=== PATIENT | male | born 1955 | race Caucasian/White ===

== ENCOUNTER → 2019-07-22 12:29 | Outpatient (CLI) | payer BC, MEDICARE, SELFPAY ==
--- NOTE | 2019-07-22 | DI.RAD.S_ITS ---
PROCEDURE: XR LUMBAR SPINE MIN 4V INDICATIONS: XR LUMBAR SPINE TECHNIQUE: 4 views of the lumbar spine acquired. COMPARISON: CR, SPINE LUMB MIN 4VW, 08/26/2016, 14:36. FINDINGS: Bones: 5 nonrib-bearing vertebrae are present. Grade 1 anterolisthesis of L4 on L5 is present. There is an appearance of a low lumbar straightening. Multilevel moderate disc space narrowing is present. Severe foraminal narrowing is present at L5-S1. No vertebral body compression fractures. No suspicious bony lesions. Soft tissues: Overlying bowel gas pattern is normal. No suspicious soft tissue calcifications. Flexion/extension: There is decreased range of motion, with flexion and extension. No dynamic instability. IMPRESSION: Decreased range of motion with degenerative changes most prominent at L5-S1. Dictated by: Cyndie Ortiz M.D. on 07/22/2019 at 16:19 Approved by: Cyndie Ortiz M.D. on 07/22/2019 at 16:21
--- NOTE | 2019-07-22 | DI.US.S_ITS ---
PROCEDURE: US ABD AORTA ANEURYSM SCREEN INDICATIONS: SCREENING TECHNIQUE: Real time scanning was performed of the aorta and iliac arteries, with image documentation. COMPARISON: None. FINDINGS: Aorta: Proximal aortic is not well-visualized. Mid-aorta measures 1.7 cm. Distal aortic diameter is 1.6 cm. Iliac arteries: Right common iliac artery measures 1.0 cm. Left common iliac artery measures 1.2 cm. IMPRESSION: Proximal aorta is not well-visualized; otherwise no abdominal aortic or common iliac artery aneurysm. Dictated by: Mark Weber [facility] Interpreted: Pepe Bates MD on 07/22/2019 at 13:22 Approved by: Pepe Bates M.D. on 07/22/2019 at 16:48
== END ==
PROVIDERS: PCP Student in an Organized Health Care Education/Training Program; Visit Provider Student in an Organized Health Care Education/Training Program
DX: Z13.6 Encounter for screening for cardiovascular disorders (principal); M47.817 Spondylosis without myelopathy or radiculopathy, lumbosacral region; M47.816 Spondylosis without myelopathy or radiculopathy, lumbar region; Z87.891 Personal history of nicotine dependence
CPT/HCPCS: 72110; 76706

== ENCOUNTER 2020-03-16 09:35 | Emergency (ER) | payer BC, MEDICARE, SELFPAY ==
[2020-03-16 10:09] VITALS: BP 189/88; PULSE 78; RESP 19; TEMP 36.7; O2SAT 94; BMI 30.1
--- NOTE | 2020-03-16 10:31 | DI.US.S_ITS ---
PROCEDURE: US ARTERIAL DUPLEX LE LT INDICATIONS: PAIN, DISCOLORATION TECHNIQUE: Color and pulse Doppler interrogation was performed of the left lower extremity arterial system, with image documentation. COMPARISON: None. FINDINGS: Common femoral artery: 131 cm/sec, with triphasic flow. Deep femoral artery: 146 cm/sec, with biphasic flow. Proximal superficial femoral artery: 165 cm/sec, with triphasic flow. Mid superficial femoral artery: 176 cm/sec, with triphasic flow. Distal superficial femoral artery: 106 cm/sec, with triphasic flow. Popliteal artery: 106 cm/sec, with triphasic flow. Posterior tibial artery: 86 cm/sec, with biphasic flow. Anterior tibial artery/dorsalis pedis: 49/28 cm/sec, with biphasic flow. Tucker-scale imaging description: No significant plaque. IMPRESSION: No hemodynamically significant stenosis, vascular occlusion or aneurysmal dilation. Dictated by: Cyndie Ortiz M.D. on 03/16/2020 at 11:47 Approved by: Cyndie Ortiz M.D. on 03/16/2020 at 11:49
--- NOTE | 2020-03-16 10:31 | DI.US.S_ITS ---
PROCEDURE: US PERIPH VENOUS LOW EXTREM LT INDICATIONS: PAIN TECHNIQUE: Real-time imaging, as well as color and pulse Doppler interrogation, were performed of the lower extremity deep veins from the inguinal ligament to the popliteal fossa. COMPARISON: [facility], , US ARTERIAL DUPLEX LE LT, 03/16/2020, 11:19. FINDINGS: The common femoral, femoral and popliteal veins are normally compressible, and free of intraluminal thrombus. Color and pulse Doppler demonstrate normal phasic intraluminal flow. There is normal augmentation response to distal compression maneuver. IMPRESSION: No deep venous thrombosis. Dictated by: Cyndie Ortiz M.D. on 03/16/2020 at 11:44 Approved by: Cyndie Ortiz M.D. on 03/16/2020 at 11:47
[2020-03-16 10:47] LABS: Add Manual Diff / Slide Review NO; Basophils Absolute Auto 0 /uL (0-100); Basophils Percent Auto 0.7 % (0-2); Eosinophils Absolute Auto 100 /uL (0-450); Eosinophils Percent Auto 1.1 % (2-4); Hematocrit 39.1 % (41-53); Hemoglobin 13.8 g/dL (13.5-17.5); Lymphocytes Absolute Auto 600 /uL (1100-4500); Lymphocytes Percent Auto 10.4 % (25-40); Mean Corpuscular HGB Conc 35.2 % (30-36); Mean Corpuscular Hemoglobin 33.6 PG (26-34); Mean Corpuscular Volume 95.3 fL (80-100); Monocytes Absolute Auto 400 /uL (0-900); Monocytes Percent Auto 6.1 % (3-14); Neutrophils Absolute Auto 4800 /uL (1500-7000); Neutrophils Percent Auto 81.7 % (50-75); Platelet Count 194 X10^3/uL (150-400); Red Cell Distribution Width 12.8 % (11.6-14.8); White Blood Cell Count 5.8 X10^3/uL (4.5-11.0)
[2020-03-16 10:53] LABS: Prothrombin Time 11.8 SECONDS (10.1-12.7)
[2020-03-16 10:56] LABS: PTT Partial Thromboplastin Tim 33 SECONDS (26.4-36.2)
--- NOTE | 2020-03-16 10:57 | ED_ITS ---
HPI - Extremity Problem <Marcy Bernabe PA-C - Last Filed: 03/16/20 12:39> General Chief complaint: Extremity Problem,Nontraumatic Stated complaint: pain in left leg below knee Time Seen by Provider: 03/16/20 10:56 Source: patient Mode of arrival: Family Vehicle Limitations: no limitations History of Present Illness HPI Narrative: This is a 64-year-old gentleman current half a pack-a-day smoker, with a history of chronic venous insufficiency who presents to the emergency department complaining of left lower leg pain on the inside of his knee just below his knee. He says that the pain started approximately 2 days ago in the morning was very sharp and very intense it did not last for a long time and he felt it on and off again for the next day or 2, then this morning he felt that again but it was less sharp and more intense and achy and slightly higher up his leg. So he was concerned because he has a family history of stroke, and he felt like maybe something was ?moving in his leg and was concerned for possible blood clot. He also notes that he feels the area is warm on the affected side, but he does not believe it is swollen. He has not had any recent change to his physical activity, he has not been in bed or stationary, he was treated with radiation approximately 1 year ago for prostate cancer. He denies shortness of breath, chest pain, abdominal pain, headache, fever, nausea, vomiting, diarrhea, chills or any other symptoms. MD Complaint: extremity pain Onset (ago): day(s) (2) Location: left and lower extremity Quality: aching and sharp Radiation: proximal (Has ?moved? to higher place on his leg) Relieving factors: nothing Exacerbating factors: nothing Associated symptoms: denies other symptoms Context: history of peripheral vascular disease Related Data Allergies Allergy/AdvReac Type Severity Reaction Status Date / Time From OXYCONTIN Allergy Severe Swelling Uncoded 03/16/20 10:12 in Lower Legs due to time release agent Review of Systems <Marcy Bernabe PA-C - Last Filed: 03/16/20 12:39> Review of Systems Narrative: GENERAL: Denies chills, fatigue, malaise, fever, sweats. HEENT: Denies sinus pain, ear pain, sore throat, difficulty swallowing, dizziness. RESPIRATORY: Denies dyspnea, cough, wheezing, hemoptysis, sputum. CARDIOVASCULAR: Denies chest pain, palpitations, orthopnea, edema, GASTROINTESTINAL: Denies nausea, vomiting, abdominal pain, diarrhea, constipation, melena. : Denies dysuria, frequency, incontinence, hematuria, urinary retention. MUSCULOSKELETAL: denies weakness, joint pain, or bony pain SKIN: Positive for slight heat on the inside of his left leg just below the knee. Positive for discoloration of both lower extremities due to chronic venous insufficiency. Denies rash, skin lesions, or other NEUROLOGIC: Denies weakness, headache, numbness, change in speech, confusion, seizures, incoordination. PSYCHIATRIC: No concerning psychosocial issues. 12 point review of systems is negative except for those stated above Patient History <Marcy Bernabe PA-C - Last Filed: 03/16/20 12:39> Social History Smoking Status: Current every day smoker Smoking Status: Current every day smoker tobacco type: cigarettes alcohol intake frequency: a few times a week Substance Use Type: does not use Exam <Marcy Bernabe PA-C - Last Filed: 03/16/20 12:39> Narrative Exam Narrative: GENERAL: 64 year old patient appears stated age. Well-nourished, well-developed patient, in mild distress. HEAD: Atraumatic. Normocephalic. EYES: Pupils equal round and reactive. Extraocular motions intact. No scleral icterus. No injection or drainage. ENT: Nose without bleeding, purulent drainage. Throat without erythema, tonsillar hypertrophy or exudate. Airway patent. NECK: Trachea midline. Non tender CARDIOVASCULAR: Regular rate and rhythm without murmurs, gallops, or rubs. RESPIRATORY: Clear to auscultation. Breath sounds equal bilaterally. No wheezes, rales, or rhonchi. GASTROINTESTINAL: Abdomen soft, non-tender, nondistended. EXTREMITIES: There is increased slight heat of the left upper calf medially compared to the right calf, there is no tenderness or erythema noted, there is brownish discoloration of bilateral shins and calves consistent with chronic venous insufficiency changes, worse on the left than the right. Calf diameter is equal in size. No edema or joint tenderness. Distal pulses area equal bilaterally BACK: Nontender without deformity or crepitance. No flank tenderness. NEURO: AOx3. SKIN: No other rash or erythema of visible areas Initial Vital Signs Initial Vital Signs: Vital Signs Temperature 98.0 F 03/16/20 10:09 Pulse Rate 78 03/16/20 10:09 Respiratory Rate 19 03/16/20 10:09 Blood Pressure 189/88 H 03/16/20 10:09 Pulse Oximetry 94 03/16/20 10:09 <Jarocho Greer MD - Last Filed: 03/17/20 07:28> Initial Vital Signs Initial Vital Signs: Vital Signs Temperature 98.0 F 03/16/20 10:09 Pulse Rate 78 03/16/20 10:09 Respiratory Rate 19 03/16/20 10:09 Blood Pressure 189/88 H 03/16/20 10:09 Pulse Oximetry 94 03/16/20 10:09 Scores <Marcy Bernabe PA-C - Last Filed: 03/16/20 12:39> GCS [place] coma scale eye opening: Spontaneous [place] coma scale verbal response: Orientated [place] coma scale motor response: Obey commands [place] coma scale total score: 15 Wells' Criteria for DVT Active Cancer (Treatment within 6 months): No Bedridden recently >3 days or major surgery within 4 weeks: No Calf Swelling >3cm compared to other leg: No Collateral (nonvericose) superficial veins present: Yes Entire leg swollen: No Localized tenderness along the deep vein system: No Pitting edema, confined to symtomatic leg: No Paralysis, paresis, or recent plaster immobilization of ext: No Previously documented DVT: No Alternative dx to DVT as likely or more likely: No Wells' criteria for DVT: 1 Course <Marcy Bernabe PA-C - Last Filed: 03/16/20 12:39> Orders Ordered: ED Orders 03/16/20 10:31 US arterial duplex LE LT Stat US periph venous low extrem lt Stat 03/16/20 10:42 Complete Blood Count AUTO DIFF Stat Comprehensive Metabolic Panel Stat D Dimer Stat PT [Prothrombin Time INR] Stat Partial Thromboplastin Time Stat Vital Signs Vital signs: Vital Signs - 8 hr 03/16/20 10:09 03/16/20 11:42 03/16/20 11:44 Temperature 98.0 F Pulse Rate 78 72 70 Respiratory Rate 19 Blood Pressure 189/88 H 211/82 H Pulse Oximetry 94 97 96 03/16/20 11:45 03/16/20 12:06 Temperature Pulse Rate 74 Respiratory Rate 14 18 Blood Pressure 178/88 H Pulse Oximetry 96 <Jarocho Greer MD - Last Filed: 03/17/20 07:28> Orders Ordered: ED Orders 03/16/20 10:31 US arterial duplex LE LT Stat US periph venous low extrem lt Stat 03/16/20 10:42 Complete Blood Count AUTO DIFF Stat Comprehensive Metabolic Panel Stat D Dimer Stat PT [Prothrombin Time INR] Stat Partial Thromboplastin Time Stat Vital Signs Vital signs: Vital Signs - 8 hr 03/16/20 10:09 03/16/20 11:42 03/16/20 11:44 Temperature 98.0 F Pulse Rate 78 72 70 Respiratory Rate 19 Blood Pressure 189/88 H 211/82 H Pulse Oximetry 94 97 96 03/16/20 11:45 03/16/20 12:06 Temperature Pulse Rate 74 Respiratory Rate 14 18 Blood Pressure 178/88 H Pulse Oximetry 96 MDM - Extremity (Nontraumatic) <Marcy Bernabe PA-C - Last Filed: 03/16/20 12:39> Lab Data Result diagrams: 03/16/20 10:42 03/16/20 10:42 Labs: Lab Results 03/16/20 03/16/20 03/16/20 Range/Units 10:42 10:42 10:42 WBC 5.8 (4.5-11.0) X10^3/uL RBC 4.10 L (4.5-5.9) X10^6/uL Hgb 13.8 (13.5-17.5) g/dL Hct 39.1 L (41-53) % MCV 95.3 (80-100) fL MCH 33.6 (26-34) PG MCHC 35.2 (30-36) % RDW 12.8 (11.6-14.8) % Plt Count 194 (150-400) X10^3/uL Neut % (Auto) 81.7 H (50-75) % Lymph % (Auto) 10.4 L (25-40) % [place] % (Auto) 6.1 (3-14) % Eos % (Auto) 1.1 L (2-4) % Baso % (Auto) 0.7 (0-2) % Neut # (Auto) 4800 (6007-2499) /uL Lymph # (Auto) 600 L (9494-7852) /uL [place] # (Auto) 400 (0-900) /uL Eos # (Auto) 100 (0-450) /uL Baso # (Auto) 0 (0-100) /uL PT 11.8 (10.1-12.7) SECONDS INR 1.0 (0.9-1.3) APTT 33 (26.4-36.2) SECONDS D-Dimer 338 H (<230) ng/mL Sodium 134 L (137-145) mmol/L Potassium 4.2 (3.4-5.1) mmol/L Chloride 98 (98-107) mmol/L Carbon Dioxide 32 (22-32) mmol/L BUN 16 (9-20) mg/dL Creatinine 0.54 L (0.66-1.25) mg/dL Estimated GFR > 60.0 (>60) mL/min BUN/Creatinine Ratio 29.6 H (6-22) Glucose 117 H (80-110) mg/dL Calcium 10.1 (8.4-10.2) mg/dL Total Bilirubin 0.7 (0.2-1.3) mg/dL AST 24 (17-59) IU/L ALT 13 (<50) IU/L Alkaline Phosphatase 73 (38-126) U/L Total Protein 7.0 (6.3-8.2) g/dL Albumin 4.2 (3.5-5.0) g/dL Globulin 2.8 (1.7-4.1) g/dL Albumin/Globulin Ratio 1.5 (1.0-2.8) 03/16/20 Range/Units 11:11 WBC (4.5-11.0) X10^3/uL RBC (4.5-5.9) X10^6/uL Hgb (13.5-17.5) g/dL Hct (41-53) % MCV (80-100) fL MCH (26-34) PG MCHC (30-36) % RDW (11.6-14.8) % Plt Count (150-400) X10^3/uL Neut % (Auto) (50-75) % Lymph % (Auto) (25-40) % [place] % (Auto) (3-14) % Eos % (Auto) (2-4) % Baso % (Auto) (0-2) % Neut # (Auto) (5577-4758) /uL Lymph # (Auto) (2262-3376) /uL [place] # (Auto) (0-900) /uL Eos # (Auto) (0-450) /uL Baso # (Auto) (0-100) /uL PT (10.1-12.7) SECONDS INR (0.9-1.3) APTT (26.4-36.2) SECONDS D-Dimer Cancelled (<230) ng/mL Sodium (137-145) mmol/L Potassium (3.4-5.1) mmol/L Chloride (98-107) mmol/L Carbon Dioxide (22-32) mmol/L BUN (9-20) mg/dL Creatinine (0.66-1.25) mg/dL Estimated GFR (>60) mL/min BUN/Creatinine Ratio (6-22) Glucose (80-110) mg/dL Calcium (8.4-10.2) mg/dL Total Bilirubin (0.2-1.3) mg/dL AST (17-59) IU/L ALT (<50) IU/L Alkaline Phosphatase (38-126) U/L Total Protein (6.3-8.2) g/dL Albumin (3.5-5.0) g/dL Globulin (1.7-4.1) g/dL Albumin/Globulin Ratio (1.0-2.8) MDM Narrative Medical decision making narrative: This is a 64-year-old gentleman with a history of venous insufficiency who presents emergency department complaining of left leg pain on the inside of his knee that is been going on for approximately 2 days intermittently. Age adjusted D-dimer cut off is 650, the patient falls well below this threshold. Report from solar panel technician of lower extremity ultrasound was negative for evidence of DVT, [place] cyst or other acute pathology. Differential diagnoses considered include chronic venous insufficiency, DVT, musculoskeletal pain, arterial embolism, infection I have low suspicion for an infection, DVT is negative based on ultrasound and D-dimer, other labs are grossly unremarkable, is possible that the patient's pain is related to musculoskeletal issues/strained muscle, this as a possible that it could be related to his chronic venous insufficiency. I discussed this with the patient, also discussed the patient's elevated blood pressures and advised him to follow-up with his primary care physician as well as provided emergency return precautions. All questions were answered. <Jarocho Greer MD - Last Filed: 03/17/20 07:28> Lab Data Labs: Lab Results 03/16/20 03/16/20 03/16/20 Range/Units 10:42 10:42 10:42 WBC 5.8 (4.5-11.0) X10^3/uL RBC 4.10 L (4.5-5.9) X10^6/uL Hgb 13.8 (13.5-17.5) g/dL Hct 39.1 L (41-53) % MCV 95.3 (80-100) fL MCH 33.6 (26-34) PG MCHC 35.2 (30-36) % RDW 12.8 (11.6-14.8) % Plt Count 194 (150-400) X10^3/uL Neut % (Auto) 81.7 H (50-75) % Lymph % (Auto) 10.4 L (25-40) % [place] % (Auto) 6.1 (3-14) % Eos % (Auto) 1.1 L (2-4) % Baso % (Auto) 0.7 (0-2) % Neut # (Auto) 4800 (5102-3874) /uL Lymph # (Auto) 600 L (2256-7541) /uL [place] # (Auto) 400 (0-900) /uL Eos # (Auto) 100 (0-450) /uL Baso # (Auto) 0 (0-100) /uL PT 11.8 (10.1-12.7) SECONDS INR 1.0 (0.9-1.3) APTT 33 (26.4-36.2) SECONDS D-Dimer 338 H (<230) ng/mL Sodium 134 L (137-145) mmol/L Potassium 4.2 (3.4-5.1) mmol/L Chloride 98 (98-107) mmol/L Carbon Dioxide 32 (22-32) mmol/L BUN 16 (9-20) mg/dL Creatinine 0.54 L (0.66-1.25) mg/dL Estimated GFR > 60.0 (>60) mL/min BUN/Creatinine Ratio 29.6 H (6-22) Glucose 117 H (80-110) mg/dL Calcium 10.1 (8.4-10.2) mg/dL Total Bilirubin 0.7 (0.2-1.3) mg/dL AST 24 (17-59) IU/L ALT 13 (<50) IU/L Alkaline Phosphatase 73 (38-126) U/L Total Protein 7.0 (6.3-8.2) g/dL Albumin 4.2 (3.5-5.0) g/dL Globulin 2.8 (1.7-4.1) g/dL Albumin/Globulin Ratio 1.5 (1.0-2.8) 03/16/20 Range/Units 11:11 WBC (4.5-11.0) X10^3/uL RBC (4.5-5.9) X10^6/uL Hgb (13.5-17.5) g/dL Hct (41-53) % MCV (80-100) fL MCH (26-34) PG MCHC (30-36) % RDW (11.6-14.8) % Plt Count (150-400) X10^3/uL Neut % (Auto) (50-75) % Lymph % (Auto) (25-40) % [place] % (Auto) (3-14) % Eos % (Auto) (2-4) % Baso % (Auto) (0-2) % Neut # (Auto) (3192-5800) /uL Lymph # (Auto) (7027-2399) /uL [place] # (Auto) (0-900) /uL Eos # (Auto) (0-450) /uL Baso # (Auto) (0-100) /uL PT (10.1-12.7) SECONDS INR (0.9-1.3) APTT (26.4-36.2) SECONDS D-Dimer Cancelled (<230) ng/mL Sodium (137-145) mmol/L Potassium (3.4-5.1) mmol/L Chloride (98-107) mmol/L Carbon Dioxide (22-32) mmol/L BUN (9-20) mg/dL Creatinine (0.66-1.25) mg/dL Estimated GFR (>60) mL/min BUN/Creatinine Ratio (6-22) Glucose (80-110) mg/dL Calcium (8.4-10.2) mg/dL Total Bilirubin (0.2-1.3) mg/dL AST (17-59) IU/L ALT (<50) IU/L Alkaline Phosphatase (38-126) U/L Total Protein (6.3-8.2) g/dL Albumin (3.5-5.0) g/dL Globulin (1.7-4.1) g/dL Albumin/Globulin Ratio (1.0-2.8) Discharge Plan Departure Patient Disposition: Home Clinical Impression: Chronic venous insufficiency Leg pain Qualifiers: Laterality: left Qualified Code(s): M79.605 - Pain in left leg Discharge Date/Time: 03/16/20 12:06 Instructions: Chronic Venous Insufficiency Activity Restrictions/Additional Instructions: Thank you for allowing us to be part of care in the emergency department today. There is no evidence of an emergent or life threatening illness at this time, but follow up with your doctor in 1-2 days is recommended nonetheless to continue to rule out serious underlying causes of your symptoms. Please call the office for an appointment. Please return to the Emergency Department for any worsening or persistent symptoms. Please take medications as directed. Based on the labs and ultrasound there is no evidence that you have a blood clot in your left lower leg, it is possible that your pain is related to musculoskeletal pain or possibly related to your chronic venous insufficiency issues. I recommend you continue to monitor symptoms, and follow up with your primary care physician. If you do develop any worsening pain, redness, heat increased swelling or any other symptoms of concern to you please do not hesitate to seek medical care. Referrals: Marta Boyer MD [Primary Care Provider] -
[2020-03-16 10:58] LABS: Alanine Aminotransferase 13 IU/L (<50); Albumin 4.2 g/dL (3.5-5.0); Albumin Globulin Ratio 1.5 (1.0-2.8); Alkaline Phosphatase 73 U/L (38-126); Aspartate Aminotransferase 24 IU/L (17-59); BUN Creatinine Ratio 29.6 (6-22); Bilirubin Total 0.7 mg/dL (0.2-1.3); Blood Urea Nitrogen 16 mg/dL (9-20); Calcium 10.1 mg/dL (8.4-10.2); Carbon Dioxide 32 mmol/L (22-32); Chloride 98 mmol/L (98-107); Estimated Glomerular Filt Rate > 60.0 mL/min (>60); Globulin 2.8 g/dL (1.7-4.1); Glucose 117 mg/dL (80-110); HEMOLYSIS 43 (0-50); Potassium 4.2 mmol/L (3.4-5.1); Sodium 134 mmol/L (137-145)
[2020-03-16 11:26] LABS: D Dimer 338 ng/mL (<230)
[2020-03-16 11:42] VITALS: PULSE 72; O2SAT 97
[2020-03-16 11:44] VITALS: BP 211/82; PULSE 70; O2SAT 96
[2020-03-16 11:45] VITALS: RESP 14
--- NOTE | 2020-03-16 12:05 | PC.NURSE ---
PT CO NEWER HARD BUMP TO MEDIAL CALF WITH CRAMPING
[2020-03-16 12:06] VITALS: BP 178/88; PULSE 74; RESP 18; O2SAT 96
== END 2020-03-16 12:06 | disposition home or self-care (01) ==
PROVIDERS: Emergency Medicine; Emergency Provider Student in an Organized Health Care Education/Training Program; PCP Student in an Organized Health Care Education/Training Program
DX: I87.2 Venous insufficiency (chronic) (peripheral) (principal); M79.605 Pain in left leg
CPT/HCPCS: 36415; 80053; 85025; 85379; 85610; 85730; 93926; 93971; 99284

== ENCOUNTER → 2020-03-20 14:34 | Outpatient (ROUT) | payer MEDICARE, SELFPAY ==
[2020-03-20 14:47] LABS: D Dimer 779 ng/mL (<230)
== END ==
PROVIDERS: PCP Student in an Organized Health Care Education/Training Program; Visit Provider Student in an Organized Health Care Education/Training Program
DX: M79.605 Pain in left leg (principal)
CPT/HCPCS: 85379

== ENCOUNTER → 2020-05-02 08:52 | Outpatient (CLI) | payer MEDICARE, SELFPAY ==
--- NOTE | 2020-05-02 | DI.US.S_ITS ---
PROCEDURE: US PERIP VENOUS LOW EXTREM LT INDICATIONS: LLE SUPERFICIAL THROMBOPHLEBITIS TECHNIQUE: Real-time imaging, as well as color and pulse Doppler interrogation, were performed of the lower extremity deep veins from the inguinal ligament to the popliteal fossa. COMPARISON: [facility], , VENOUS LOWER EXTREMITY DOPPLER LEFT, 03/21/2020, 17:18. [facility], , US PERIP VENOUS LOW EXTREM LT, 03/16/2020, 11:13. FINDINGS: The common femoral, femoral and popliteal veins are normally compressible, and free of intraluminal thrombus. Color and pulse Doppler demonstrate normal phasic intraluminal flow. There is normal augmentation response to distal compression maneuver. The greater saphenous vein is dilated and contains nonocclusive thrombus consistent, approximately 1.5 cm from the saphenofemoral junction. IMPRESSION: 1. No DVT in the left lower extremity. 2. Varicose greater saphenous vein with thrombus consistent with superficial thrombophlebitis. Superficial thrombus is now nonocclusive. Dictated by: Brigida Turner M.D. on 05/02/2020 at 8:32 Approved by: Brigida Turner M.D. on 05/02/2020 at 8:38
== END ==
PROVIDERS: PCP Student in an Organized Health Care Education/Training Program; Referring Provider Student in an Organized Health Care Education/Training Program; Visit Provider Student in an Organized Health Care Education/Training Program
DX: I80.02 Phlebitis and thrombophlebitis of superficial vessels of left lower extremity (principal)
CPT/HCPCS: 93971

== ENCOUNTER → 2022-08-04 09:17 | Outpatient (CLI) | payer MEDICARE, SELFPAY ==
[2022-08-04 10:00] LABS: Add Manual Diff / Slide Review NO; Basophils Absolute Auto 0 /uL (0-100); Basophils Percent Auto 0.6 % (0-2); Eosinophils Absolute Auto 200 /uL (0-450); Hematocrit 39.4 % (41-53); Hemoglobin 13.5 g/dL (13.5-17.5); Lymphocytes Absolute Auto 1000 /uL (1100-4500); Lymphocytes Percent Auto 20.5 % (25-40); Mean Corpuscular HGB Conc 34.2 % (30-36); Mean Corpuscular Volume 93.4 fL (80-100); Monocytes Absolute Auto 500 /uL (0-900); Monocytes Percent Auto 9.9 % (3-14); Neutrophils Absolute Auto 3200 /uL (1500-7000); Platelet Count 211 X10^3/uL (150-400); Red Blood Cell Count 4.22 X10^6/uL (4.5-5.9); Red Cell Distribution Width 12.5 % (11.6-14.8); White Blood Cell Count 4.9 X10^3/uL (4.5-11.0)
[2022-08-04 10:34] LABS: Alanine Aminotransferase 17 IU/L (<50); Albumin 4.1 g/dL (3.5-5.0); Albumin Globulin Ratio 1.3 (1.0-2.8); Alkaline Phosphatase 107 U/L (38-126); Aspartate Aminotransferase 19 IU/L (17-59); BUN Creatinine Ratio 20.3 (6-22); Bilirubin Total 0.5 mg/dL (0.2-1.3); Blood Urea Nitrogen 14 mg/dL (9-20); Calcium 10.4 mg/dL (8.4-10.2); Carbon Dioxide 34 mmol/L (22-32); Chloride 99 mmol/L (98-107); Cholesterol 155 mg/dL (140-199); Estimated Glomerular Filt Rate > 60 mL/min (>60); Globulin 3.1 g/dL (1.7-4.1); Glucose 118 mg/dL (80-110); HDL Cholesterol 67 mg/dL (40-60); HEMOLYSIS < 15 (0-50); LDL Cholesterol Calculated 78 mg/dL (<100); Potassium 4.4 mmol/L (3.4-5.1); Sodium 138 mmol/L (137-145); Total Protein 7.2 g/dL (6.3-8.2); Triglycerides 48 mg/dL (35-150)
[2022-08-04 10:44] LABS: NT-proBNP (BNP-Adult 18+) 42 pg/mL (<125)
== END ==
PROVIDERS: PCP Family Medicine; Referring Provider Family Medicine; Visit Provider Family Medicine
DX: R06.09 Other forms of dyspnea; Z12.5 Encounter for screening for malignant neoplasm of prostate; I10 Essential (primary) hypertension; C61 Malignant neoplasm of prostate
CPT/HCPCS: 36415; 80053; 80061; 83880; 85025; G0103

== ENCOUNTER → 2023-08-12 07:17 | Outpatient (CLI) | payer MEDICARE, SELFPAY ==
[2023-08-12 08:17] LABS: Hemoglobin A1C% w Est Avg Glu 5.6 % (4.0-6.0)
[2023-08-12 08:22] LABS: Alanine Aminotransferase 21 IU/L (<50); Albumin Globulin Ratio 1.4 (1.0-2.8); Alkaline Phosphatase 88 U/L (38-126); Aspartate Aminotransferase 24 IU/L (17-59); BUN Creatinine Ratio 25.3 (6-22); Bilirubin Total 0.7 mg/dL (0.2-1.3); Blood Urea Nitrogen 20 mg/dL (9-20); Calcium 11.1 mg/dL (8.4-10.2); Carbon Dioxide 32 mmol/L (22-32); Chloride 99 mmol/L (98-107); Cholesterol 113 mg/dL (140-199); Estimated Glomerular Filt Rate > 60 mL/min (>60); Globulin 2.9 g/dL (1.7-4.1); Glucose 121 mg/dL (80-110); HDL Cholesterol 54 mg/dL (40-60); HEMOLYSIS < 15 (0-50); LDL Cholesterol Calculated 50 mg/dL (<100); Potassium 4.6 mmol/L (3.4-5.1); Sodium 136 mmol/L (137-145); Total Protein 6.9 g/dL (6.3-8.2); Triglycerides 45 mg/dL (35-150)
[2023-08-12 08:52] LABS: Prostate Specific Antigen Scrn 0.617 ng/mL (0.1-4.0)
== END ==
PROVIDERS: PCP Family Medicine; Referring Provider Family Medicine; Visit Provider Family Medicine
DX: E78.49 Other hyperlipidemia (principal); Z12.5 Encounter for screening for malignant neoplasm of prostate; I10 Essential (primary) hypertension; C61 Malignant neoplasm of prostate
CPT/HCPCS: 36415; 80053; 80061; 83036; G0103

== ENCOUNTER → 2023-09-17 12:12 | Outpatient (CLI) | payer MEDICARE, SELFPAY ==
[2023-09-17 13:48] LABS: Vitamin D 25 Hydroxy (D3) 13.2 ng/mL (30.0-100.0)
[2023-09-18 11:17] LABS: Ionized Calcium 5.7 mg/dL (4.5-5.6)
[2023-09-18 18:50] LABS: Free Kappa Lt Chains, Serum 24.6 mg/L (3.3-19.4); Free Lambda Lt Chains,Serum 22.8 mg/L (5.7-26.3)
[2023-09-19 10:56] LABS: Parathyroid Hormone Int 96 pg/mL (15-65)
[2023-09-21 15:30] LABS: Albumin 3.7 g/dL (2.9-4.4); Alpha-1-Globulin 0.2 g/dL (0.0-0.4); Alpha-2-Globulin 0.7 g/dL (0.4-1.0); Globulin Total 2.9 g/dL (2.2-3.9); Protein, Total 6.6 g/dL (6.0-8.5)
== END ==
PROVIDERS: PCP Family Medicine; Referring Provider Family Medicine; Visit Provider Family Medicine
DX: E83.52 Hypercalcemia (principal)
CPT/HCPCS: 36415; 82306; 82330; 83883; 83970; 84155; 84165; 84443

== ENCOUNTER → 2023-10-16 09:23 | Outpatient (CLI) | payer MEDICARE, SELFPAY ==
--- NOTE | 2023-10-16 09:24 | DI.CT.S_ITS ---
PROCEDURE: CT LUNG LOW DOSE SCREENING INDICATIONS: Screening TECHNIQUE: Noncontrast 2.0-2.5 mm thick sections acquired from the pulmonary apices to the posterior costophrenic angles. 7 mm thick axial MIP, and 5 mm coronal and sagittal reformats were then acquired. For radiation dose reduction, the following was used: automated exposure control, adjustment of mA and/or kV according to patient size. COMPARISON: None. FINDINGS: Image quality: Diagnostic. Lower Neck: No enlarged lymph nodes. Thyroid: No thyroid nodules which require sonographic follow up, per consensus guidelines. Axillae: No enlarged lymph nodes. Chest Wall: Unremarkable. Bones: Unremarkable. Partially visualized ACDF hardware of the cervical spine. Lungs and Pleura: No pneumothorax or pleural effusions. Several lung nodules are seen 8 millimeter nodule in the left upper lung (81/3) 6 millimeter solid perifissural nodule right lung (3/158), likely a normal lymph node 3 millimeter solid perifissural nodule right lung (3/150), likely a normal lymph node Heart: Heart size is normal. No pericardial effusion. Coronary calcifications are present. Thoracic Vessels: The aorta and pulmonary arteries demonstrate normal size. Mediastinum and Joanie: No enlarged lymph nodes. Esophagus: No wall thickening. Small hiatal hernia present. Upper Abdomen: Visualized upper abdomen solid organs and bowel loops appear normal. IMPRESSION: 8 millimeter nodule in the left upper lung which is probably benign. Recommend 6-month low-dose CT. LUNG-RADS 3 probably benign Clinically Significant Non-pulmonary Findings: Small hiatal hernia.. ACDF hardware of the cervical spine Dictated by: Catracho Nelson M.D. on 10/16/2023 at 11:34 Approved by: Catracho Nelson M.D. on 10/16/2023 at 11:54
== END ==
PROVIDERS: PCP Family Medicine; Referring Provider Family Medicine; Visit Provider Family Medicine
DX: Z87.891 Personal history of nicotine dependence (principal); Z12.2 Encounter for screening for malignant neoplasm of respiratory organs; R91.8 Other nonspecific abnormal finding of lung field; K44.9 Diaphragmatic hernia without obstruction or gangrene; Z98.1 Arthrodesis status
CPT/HCPCS: 71271

== ENCOUNTER → 2024-05-20 07:53 | Outpatient (CLI) | payer MEDICARE, SELFPAY ==
--- NOTE | 2024-05-20 07:54 | DI.CT.S_ITS ---
PROCEDURE: CT CHEST WO CON INDICATIONS: f/u pulm nodule TECHNIQUE: Noncontrast 5 mm thick sections acquired from the pulmonary apices to the posterior costophrenic angles. 1 mm lung window, 5 mm thick coronal and sagittal and 7 mm axial MIP reformats were then acquired. For radiation dose reduction, the following was used: automated exposure control, adjustment of mA and/or kV according to patient size. COMPARISON: [facility], CT, CT LUNG LOW DOSE SCREENING, 10/16/2023, 9:32. FINDINGS: Image quality: Diagnostic Lungs and pleura: No dense airspace disease or pleural effusion. Background emphysematous changes are present. Left upper lungs nodule has spiculated borders and central cavitation. This has grown slightly measuring 1.1 cm (), previously 0.8 cm. Other smaller nodules are seen, overall low suspicion and stable. Possible tiny calcified pleural plaque at the right lung base. Mediastinum, heart, and esophagus: Small hiatal hernia. Normal heart size. Coronary calcifications. Annular calcifications. No pathologic lymph nodes by size criteria Chest wall and thyroid: Thyroid is unremarkable. Gynecomastia, moderate bilaterally. Upper abdomen: No gross abnormality on these noncontrast images. Bones: There are degenerative changes. IMPRESSION: Left lung apex nodule with spiculated borders, tiny central cavitation, and slight growth since 10/16/2023 compatible with primary lung malignancy. Consider PET-CT. Percutaneous sampling is possible, though with greater than usual risk of pneumothorax. Other findings above. No definite lymphadenopathy or other signs of active metastatic disease in the chest on this noncontrast study Dictated by: Andrew Simms M.D. on 05/20/2024 at 17:10 Approved by: Andrew Simms M.D. on 05/20/2024 at 17:15
== END ==
LOC: CT 07:53
PROVIDERS: PCP Family Medicine; Referring Provider Family Medicine; Visit Provider Family Medicine
DX: R91.1 Solitary pulmonary nodule (principal); K44.9 Diaphragmatic hernia without obstruction or gangrene; I25.10 Atherosclerotic heart disease of native coronary artery without angina pectoris; I34.81 Nonrheumatic mitral (valve) annulus calcification; N62 Hypertrophy of breast
CPT/HCPCS: 71250

== ENCOUNTER → 2024-06-09 07:03 | Outpatient (CLI) | payer MEDICARE, SELFPAY | PROVIDERS: PCP Family Medicine; Referring Provider Family Medicine; Visit Provider Family Medicine | DX: R06.02 Shortness of breath (principal); R06.09 Other forms of dyspnea; R91.1 Solitary pulmonary nodule; Z87.891 Personal history of nicotine dependence; R94.2 Abnormal results of pulmonary function studies | CPT/HCPCS: 94060; 94729 ==

== ENCOUNTER 2024-09-04 09:35 | Emergency (ER) | payer MEDICARE, SELFPAY ==
[2024-09-04] VITALS (50 sets, daily range): BP systolic 86–143; BP diastolic 53–88; PULSE 145–158; RESP 10–28; TEMP 36.4; O2SAT 92–98; BMI 32.7
--- NOTE | 2024-09-04 09:35 | DI.RAD.S_ITS ---
PROCEDURE: XR CHEST 1V INDICATIONS: Shortness of breath TECHNIQUE: One view of the chest was acquired. COMPARISON: [facility], CR, XR CHEST 1 VIEW, 08/31/2024, 4:47. [facility], CR, XR CHEST 1 VIEW, 09/01/2024, 5:52. FINDINGS: Surgical changes and devices: There is a left-sided chest tube. Left pulmonary anastomotic staple lines can be seen. Cervical spine fixation hardware can be seen. Lungs and pleura: Lungs are clear. No pleural effusions or pneumothorax. Mediastinum: Mediastinal contours appear normal. Heart size is normal. Atherosclerotic calcification of the aortic arch is noted. Bones and chest wall: Extensive subcutaneous gas is seen, which is clearly worse on the current study than on the prior, now prominently affecting both sides. IMPRESSION: Extensive subcutaneous gas is seen, which is worse on the current study than on the most prior chest radiograph. This limits evaluation for the remainder the study. There is a left-sided chest tube in place. Dictated by: Karthik Li M.D. on 09/04/2024 at 8:51 Approved by: Karthik Li M.D. on 09/04/2024 at 8:53
--- NOTE | 2024-09-04 09:37 | ED.GENADULT ---
HPI - General Adult General Chief complaint: Shortness of Breath/Dyspnea Stated complaint: SOB Time Seen by Provider: 09/04/24 09:37 History of Present Illness HPI narrative: 69-year-old male with left-sided chest discomfort and increasing shortness of breath, status post lung biopsy at [facility] 08/02/2024 which confirmed lung cancer left upper lobe with complication of perforation and was hospitalized there for 10 days, discharged home, on Thursday08/29/2024 reports that he had resection of left upper lung cancer mass at [facility] by thoracic surgeon Dr Parker, and was discharged home on 09/01/2024 with left chest tube in place. He did not have any pulling or trauma to the chest tube, not aware that it might have been dislodged. However he has increased shortness of breath and some swelling sensation to the arms and left upper shoulder and left chest. He arrived by EMS with non-rebreather mask in place. Related Data Home Medications Medication Instructions Recorded Confirmed buprenorphine HCl 8 mg sublingual 24 mg sublingual DAILY PRN 08/11/23 09/02/24 tablet gabapentin 100 mg capsule 100 mg PO TID 09/02/24 09/02/24 ibuprofen 400 mg tablet 400 mg PO Q8H 09/02/24 09/02/24 oxycodone 5 mg tablet 5 mg PO Q4H PRN pain 09/02/24 09/02/24 Previous Rx's Medication Instructions Recorded atorvastatin 20 mg tablet (Lipitor) 20 mg PO DAILY cholesterol #90 tabs 08/11/23 cyclobenzaprine 10 mg tablet 10 mg PO BID PRN muscle spasm #180 08/11/23 tabs lisinopril 20 2 tab PO DAILY #180 tabs 08/11/23 mg-hydrochlorothiazide 12.5 mg tablet cholecalciferol (vitamin D3) 50 50 mcg PO DAILY #90 caps 10/16/23 mcg (2,000 unit) capsule albuterol sulfate 90 mcg/actuation 1 - 2 inh inhalation Q4-6H PRN 08/16/24 aerosol inhaler shortness of breath or wheezing #8.5 grams fluoxetine 20 mg capsule (Prozac) 20 mg PO DAILY #30 caps 08/16/24 hydroxyzine HCl 25 mg tablet 25 mg PO QID PRN anxiety/panic #60 08/16/24 tabs Allergies Allergy/AdvReac Type Severity Reaction Status Date / Time From OXYCONTIN Allergy Severe Swelling Uncoded 08/16/24 09:20 in Lower Legs due to time release agent Patient History Medical History Anxiety disorder with panic attacks Opiate dependence COPD (chronic obstructive pulmonary disease) Adenocarcinoma, lung Lung cancer Pulmonary nodule Hypercalcemia Encounter for subsequent annual wellness visit (AWV) in Medicare patient Chronic back pain Hyperlipidemia Fractures Mumps (~1963) Measles (~1961) Chicken pox History of elevated PSA (~2017) Low back pain Chronic neck pain Prostate cancer Benign essential HTN Surgical History History of surgery on arm (~1977) Anesthesia Cervical vertebral fusion (~2008) Family History Father Stroke Prostate cancer Mother Hypertension Hyperlipidemia Grandfather History of heart disease Grandfather History of kidney disease Social History Smoking Status: Former smoker Smoking Status: Former smoker tobacco type: cigarettes alcohol intake frequency: a few times a week Exam Narrative Exam Narrative: GENERAL: Well-developed patient, in mild distress. HEAD: Atraumatic. Normocephalic. EYES: Pupils equal round and reactive. Extraocular motions intact. No scleral icterus. No injection or drainage. ENT: Nose without bleeding, purulent drainage. Throat without erythema, tonsillar hypertrophy or exudate. Airway patent. NECK: Trachea midline. Non tender CARDIOVASCULAR: Regular rate and rhythm without murmurs, gallops, or rubs. RESPIRATORY: Clear to auscultation. Breath sounds equal bilaterally. No wheezes, rales, or rhonchi. Crepitance to left anterior chest wall extending up into the trapezius and posterior thorax and upper left arm, enlarged compared to right sided chest. Speaking in full sentences. Left chest tube in place connected to gravity bag. GASTROINTESTINAL: Abdomen soft, non-tender, nondistended. EXTREMITIES: No edema or joint tenderness. BACK: Nontender without deformity or crepitance. No flank tenderness. NEURO: AOx3. Motor functions grossly nonfocal SKIN: No rash or erythema of visible areas Initial Vital Signs Initial Vital Signs: Vital Signs Temperature 97.6 F 12/22/24 09:39 Pulse Rate 158 H 09/04/24 09:39 Respiratory Rate 18 09/04/24 09:39 Blood Pressure 120/80 09/04/24 09:39 Pulse Oximetry 97 09/04/24 09:39 Oxygen Delivery Method Room Air 09/04/24 09:39 Course Orders Ordered: ED Orders 09/04/24 12:40 EKG-12 Lead Routine Discontinued Medications Adenosine (Adenosine 6 Mg/2 Ml Vial) 6 mg IV NOW ONE Stop: 09/04/24 12:54 Last Admin: 09/04/24 13:09 Dose: 6 mg Documented By: MPO Adenosine (Adenosine 6 Mg/2 Ml Vial) 6 mg IV NOW ONE Stop: 09/04/24 12:55 Diltiazem HCl (Diltiazem 25 Mg/5 Ml Sdv) 10 mg IV NOW ONE Stop: 09/04/24 10:11 Last Admin: 09/04/24 10:32 Dose: 10 mg Documented By: MPO Diltiazem HCl (Diltiazem 25 Mg/5 Ml Sdv) 10 mg IV NOW ONE Stop: 09/04/24 11:40 Last Admin: 09/04/24 11:42 Dose: 10 mg Documented By: MPO Hydromorphone HCl (Hydromorphone 0.5 Mg Inj) 0.5 mg IV NOW ONE Stop: 09/04/24 10:28 Last Admin: 09/04/24 10:38 Dose: 0.5 mg Documented By: MPO Hydromorphone HCl (Hydromorphone 0.5 Mg Inj) 0.5 mg IV NOW ONE Stop: 09/04/24 11:05 Last Admin: 09/04/24 11:10 Dose: 0.5 mg Documented By: MPO Diltiazem HCl 125 mg/ Sodium (Chloride) 125 mls @ 5 mls/hr IV TITRATE HARRY; Protocol Last Titration: 09/04/24 12:06 Dose: 0 mg/hr, 0 mls/hr Documented By: Titration: 09/04/24 11:57 Dose: 15 mg/hr, 15 mls/hr Documented By: Titration: 09/04/24 11:28 Dose: 10 mg/hr, 10 mls/hr Documented By: Titration: 09/04/24 11:15 Dose: 0 mg/hr, 0 mls/hr Documented By: Titration: 09/04/24 10:52 Dose: 10 mg/hr, 10 mls/hr Documented By: Admin: 09/04/24 10:38 Dose: 5 mg/hr, 5 mls/hr Documented By: CHARY Sodium Chloride (Normal Saline 0.9%) 1,000 mls @ 1,000 mls/hr IV BOLUS ONE Stop: 09/04/24 11:14 Last Infusion: 09/04/24 12:40 Dose: Infused Documented By: Admin: 09/04/24 10:39 Dose: 1,000 mls/hr Documented By: CHARY Ondansetron HCl (Ondansetron 4 Mg/2 Ml Inj) 4 mg IV NOW ONE Stop: 09/04/24 10:28 Last Admin: 09/04/24 12:40 Dose: Not Given Documented By: CHARY Vital Signs Vital signs: Vital Signs - 8 hr 09/04/24 12:46 09/04/24 12:46 09/04/24 12:50 Pulse Rate 147 H Respiratory Rate 15 Blood Pressure 129/67 130/60 Pulse Oximetry 95 09/04/24 12:50 09/04/24 12:55 09/04/24 12:55 Pulse Rate 147 H 148 H Respiratory Rate 23 15 Blood Pressure 106/76 Pulse Oximetry 95 96 09/04/24 13:00 09/04/24 13:00 09/04/24 13:05 Pulse Rate 148 H 147 H Respiratory Rate 22 15 Blood Pressure 101/63 Pulse Oximetry 96 96 09/04/24 13:05 09/04/24 13:10 09/04/24 13:10 Pulse Rate 150 H Respiratory Rate 20 Blood Pressure 106/72 118/86 Pulse Oximetry 95 09/04/24 13:15 09/04/24 13:15 09/04/24 13:20 Pulse Rate 149 H 149 H Respiratory Rate 21 12 Blood Pressure 141/81 H Pulse Oximetry 96 96 09/04/24 13:20 09/04/24 13:26 09/04/24 13:26 Pulse Rate 148 H Respiratory Rate 28 H Blood Pressure 134/80 124/71 Pulse Oximetry 93 09/04/24 13:30 09/04/24 13:30 09/04/24 13:34 Pulse Rate 148 H 149 H Respiratory Rate 14 17 Blood Pressure 127/78 Pulse Oximetry 94 96 09/04/24 13:35 09/04/24 13:35 09/04/24 13:40 Pulse Rate 148 H Respiratory Rate Blood Pressure 124/77 125/75 Pulse Oximetry 97 09/04/24 13:40 09/04/24 13:45 09/04/24 13:45 Pulse Rate 147 H 149 H Respiratory Rate 18 14 Blood Pressure 128/67 Pulse Oximetry 95 95 09/04/24 13:50 09/04/24 13:50 09/04/24 13:55 Pulse Rate 149 H Respiratory Rate 21 Blood Pressure 114/73 130/74 Pulse Oximetry 94 09/04/24 13:55 09/04/24 14:00 09/04/24 14:00 Pulse Rate 147 H 149 H Respiratory Rate 17 14 Blood Pressure 130/81 Pulse Oximetry 95 95 09/04/24 14:05 09/04/24 14:05 09/04/24 14:10 Pulse Rate 149 H Respiratory Rate 15 Blood Pressure 113/71 137/87 Pulse Oximetry 96 09/04/24 14:10 09/04/24 14:15 09/04/24 14:15 Pulse Rate 149 H 146 H Respiratory Rate 13 12 Blood Pressure 136/83 Pulse Oximetry 95 95 09/04/24 14:20 09/04/24 14:20 09/04/24 14:25 Pulse Rate 147 H Respiratory Rate 11 L Blood Pressure 134/69 139/81 Pulse Oximetry 94 09/04/24 14:25 09/04/24 14:30 09/04/24 14:30 Pulse Rate 149 H 148 H Respiratory Rate 17 13 Blood Pressure 114/83 Pulse Oximetry 96 95 09/04/24 14:35 09/04/24 14:35 09/04/24 14:40 Pulse Rate 149 H Respiratory Rate 11 L Blood Pressure 118/88 109/83 Pulse Oximetry 96 09/04/24 14:40 Pulse Rate 150 H Respiratory Rate 11 L Blood Pressure Pulse Oximetry 95 Medical Decision Making Lab Data Lab results reviewed: Yes I reviewed the patient's lab results. Lab results narrative: White blood cell count 70146, hemoglobin 12.9, platelets adequate. BUN 23 creatinine 0.85, glucose 145. Sodium 134, potassium 4.1. Serum CO2 27. Troponin negative/unmeasurable. BNP 2290. COVID, flu, RSV negative. 09/04/24 10:00 09/04/24 10:00 Labs: Lab Results 09/04/24 09/04/24 09/04/24 Range/Units 09:48 10:00 12:15 WBC 17.2 H (4.5-11.0) X10^3/uL RBC 4.07 L (4.5-5.9) X10^6/uL Hgb 12.9 L (13.5-17.5) g/dL Hct 38.2 L (41-53) % MCV 93.9 (80-100) fL MCH 31.6 (26-34) PG MCHC 33.7 (30-36) % RDW 13.5 (11.6-14.8) % Plt Count 248 (150-400) X10^3/uL Neut % (Auto) 88.5 H (50-75) % Lymph % (Auto) 5.0 L (25-40) % Trinity % (Auto) 5.0 (3-14) % Eos % (Auto) 1.0 L (2-4) % Baso % (Auto) 0.5 (0-2) % Neut # (Auto) 57267 H (8314-3238) /uL Lymph # (Auto) 900 L (9918-6442) /uL Trinity # (Auto) 900 (0-900) /uL Eos # (Auto) 200 (0-450) /uL Baso # (Auto) 100 (0-100) /uL PT 12.6 H (9.4-12.5) SECONDS INR 1.1 (0.9-1.3) Sodium 134 L (137-145) mmol/L Potassium 4.1 (3.4-5.1) mmol/L Chloride 101 (98-107) mmol/L Carbon Dioxide 27 (22-32) mmol/L BUN 23 H (9-20) mg/dL Creatinine 0.85 (0.66-1.25) mg/dL Estimated GFR > 60 (>60) mL/min BUN/Creatinine Ratio 27.1 H (6-22) Glucose 145 H (80-110) mg/dL Lactate 2.4 H 1.5 (0.7-2.1) mmol/L Calcium 11.7 H (8.4-10.2) mg/dL Total Bilirubin 0.9 (0.2-1.3) mg/dL AST 33 (17-59) IU/L ALT 25 (<50) IU/L Alkaline Phosphatase 72 (38-126) U/L Troponin I < 0.012 (0.01-0.034) ng/mL NT-Pro-B Natriuret Pep 2290 H (<125) pg/mL Total Protein 6.4 (6.3-8.2) g/dL Albumin 3.6 (3.5-5.0) g/dL Globulin 2.8 (1.7-4.1) g/dL Albumin/Globulin Ratio 1.3 (1.0-2.8) SARS-CoV-2 (PCR) Negative (Negative) Influenza A (RT-PCR) Flu a negative (NEGATIVE) Influenza B (RT-PCR) Flu b negative (NEGATIVE) RSV (PCR) Negative (Negative) Imaging Data Chest x-ray: Radiologist's Impression: [address] [address] XRay Report Signed Patient: Jt Sultana MR#: [id number] : 1955 Acct:[id number] Age/Sex: 69 / M Date of Service: 09/04/24 Loc: ED Accession Number: [id number] Procedure: XR chest 1V Ordering Provider: Cabrera Davis MD PROCEDURE: XR CHEST 1V INDICATIONS: Shortness of breath TECHNIQUE: One view of the chest was acquired. COMPARISON: [facility], CR, XR CHEST 1 VIEW, 08/31/2024, 4:47. [facility], CR, XR CHEST 1 VIEW, 09/01/2024, 5:52. FINDINGS: Surgical changes and devices: There is a left-sided chest tube. Left pulmonary anastomotic staple lines can be seen. Cervical spine fixation hardware can be seen. Lungs and pleura: Lungs are clear. No pleural effusions or pneumothorax. Mediastinum: Mediastinal contours appear normal. Heart size is normal. Atherosclerotic calcification of the aortic arch is noted. Bones and chest wall: Extensive subcutaneous gas is seen, which is clearly worse on the current study than on the prior, now prominently affecting both sides. IMPRESSION: Extensive subcutaneous gas is seen, which is worse on the current study than on the most prior chest radiograph. This limits evaluation for the remainder the study. There is a left-sided chest tube in place. Dictated by: Karthik Li M.D. on 09/04/2024 at 8:51 Approved by: Karthik Li M.D. on 09/04/2024 at 8:53 CT angiogram chest: Radiologist's Impression: [address] [address] [address] Scan Report Signed with Addenda Patient: Jt Sultana MR#: [id number] : 1955 Acct:[id number] Age/Sex: 69 / M Date of Service: 09/04/24 Loc: ED Accession Number: [id number] Procedure: CT angio chest PE protocol Ordering Provider: Cabrera Davis MD ADDENDUMThis report includes an Addendum and supersedes previous reports for this exam. PROCEDURE: CT ANGIO CHEST PE PROTOCOL INDICATIONS: left chest pain, SQ air TECHNIQUE: After the administration of intravenous contrast, 2 mm thick sections acquired from the pulmonary apices to the posterior costophrenic angles. 3-dimensional maximum intensity projection (MIP) coronal and sagittal reformats were then acquired through the thorax. For radiation dose reduction, the following was used: automated exposure control, adjustment of mA and/or kV according to patient size. COMPARISON: None. FINDINGS: Image quality: Suboptimal opacification of the pulmonary arteries. Pulmonary arteries: Suboptimal opacification of the pulmonary arteries. No central pulmonary embolus identified. However segmental subsegmental pulmonary arteries cannot be evaluated.. Lower Neck: No enlarged lymph nodes. Thyroid: No thyroid nodules which require sonographic follow up, per consensus guidelines. Axillae: No enlarged lymph nodes. Chest Wall: There is extensive bilateral subcutaneous emphysema extending to the bilateral upper neck. Bones: Partially visualized anterior cervical hardware.. Lungs and Pleura: There is right pneumothorax with chest tube in place. Heart: Heart size is normal. No pericardial effusion. Thoracic Vessels: No aortic aneurysm. Mediastinum and Joanie: No enlarged lymph nodes. Extensive emphysema within the mediastinum. Esophagus: No wall thickening. Small hiatal hernia. Upper Abdomen: Visualized upper abdomen solid organs and bowel loops appear normal. IMPRESSION: Suboptimal evaluation of the pulmonary arteries. No central pulmonary embolus identified. Right pleural effusion with pigtail drain in place. Extensive subcutaneous emphysema involving the bilateral neck, anterior posterior chest yoo as well as extending into the mediastinum of uncertain etiology. No displaced rib fractures identified. Approved by: Rosalba Lutz M.D.,Ph.D. on 09/04/2024 at 11:59 ADDENDUM: Correction to laterality of pneumothorax and drain. There is LEFT pneumothorax and chest tube. Query possible right lower segmental pulmonary embolus, for example coronal series 6, image 66 and axial series 4, image 87. If there is high clinical concern for pulmonary embolus consider repeat imaging. Updated findings were discussed with Dr. Davis by Dr. Lutz at 1:18 p.m. on 09/04/2024. Approved by: Rosalba Lutz M.D.,Ph.D. on 09/04/2024 at 13:20 Addendum Dictated By: Rosalba Lutz MD Addendum Signed By: 09/04/241320 Addendum Cosigned By: DD/ TD/TT: 09/04/24 PROCEDURE: CT ANGIO CHEST PE PROTOCOL INDICATIONS: left chest pain, SQ air TECHNIQUE: After the administration of intravenous contrast, 2 mm thick sections acquired from the pulmonary apices to the posterior costophrenic angles. 3-dimensional maximum intensity projection (MIP) coronal and sagittal reformats were then acquired through the thorax. For radiation dose reduction, the following was used: automated exposure control, adjustment of mA and/or kV according to patient size. COMPARISON: None. FINDINGS: Image quality: Suboptimal opacification of the pulmonary arteries. Pulmonary arteries: Suboptimal opacification of the pulmonary arteries. No central pulmonary embolus identified. However segmental subsegmental pulmonary arteries cannot be evaluated.. Lower Neck: No enlarged lymph nodes. Thyroid: No thyroid nodules which require sonographic follow up, per consensus guidelines. Axillae: No enlarged lymph nodes. Chest Wall: There is extensive bilateral subcutaneous emphysema extending to the bilateral upper neck. Bones: Partially visualized anterior cervical hardware.. Lungs and Pleura: There is right pneumothorax with chest tube in place. Heart: Heart size is normal. No pericardial effusion. Thoracic Vessels: No aortic aneurysm. Mediastinum and Joanie: No enlarged lymph nodes. Extensive emphysema within the mediastinum. Esophagus: No wall thickening. Small hiatal hernia. Upper Abdomen: Visualized upper abdomen solid organs and bowel loops appear normal. IMPRESSION: Suboptimal evaluation of the pulmonary arteries. No central pulmonary embolus identified. Right pleural effusion with pigtail drain in place. Extensive subcutaneous emphysema involving the bilateral neck, anterior posterior chest yoo as well as extending into the mediastinum of uncertain etiology. No displaced rib fractures identified. Approved by: Rosalba Lutz M.D.,Ph.D. on 09/04/2024 at 11:59 ECG Data Attestation: I personally reviewed and interpreted this ECG as follows: Interpretation: 1008, Narrow complex tachycardia with rate 152, suspected atrial flutter with two-to-one AV conduction, nonspecific ST-T changes, no grossly obvious ST segment elevation changes. No deep ST segment depression changes. QRS 76. QTC 391. 1240, atrial flutter with two-to-one AV conduction, rate 147. No obvious ST segment elevation or depression changes. QRS 60, QTC 503. MDM Narrative Medical decision making narrative: 69-year-old male with recent diagnosis left upper lung cancer, biopsy and possible pneumothorax from initial diagnostic procedure 08/02/2024 admitted to [facility] for 10 days and was discharged, then had left upper lobe lung mass resection 08/29/2024 at [facility], hospitalized for 3 days, discharge with left-sided chest tube in place on 09/01/2024. Now with left-sided subcutaneous air in shortness of breath, arrival with non-rebreather mask, however weaned from mask with 97% noted. Chest x-ray portable study, my view left-sided chest tube appears to be in place with expanded lung, left subcutaneous air noted, also some right-sided subcutaneous air, no right-sided pneumothorax, await Radiology reading. We will obtain labs, CTA chest, try to obtain records from [facility], likely touch base with [facility] thoracic surgery. Currently hemodynamically stable. Patient would like pain medication, IV Dilaudid dose. Chest x-ray report from Radiology, lung expanded, subcutaneous air [id number]-right side noted. See radiology report. Paged local General surgery here Dr. Allen, who is in the operating room, aware of request for ED consultation. EKG shows a flutter with 2-1 block, ventricular rate 150, patient recalls he had some kind of rhythm problem while he was in [facility], not on chronic blood thinner medications. Systolic blood pressure 120. We did discuss emergent cardioversion, however he has not currently hypotensive, and if he has had intermittent atrial fibrillation/flutter problems he could have some clots that could mobilize with cardioversion. He is amenable to a trial for now of rate control, IV diltiazem bolus/infusion. General surgery Dr. lAlen at bedside, has placed chest tube to suction, improved blood pressure. 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 No call back from Cardiothoracic surgery Dr. Umesh Elena, we will try other tertiary centers. Case discussed with Preethi osullivan, still awaiting call back from thoracic surgery Dr. Umesh Elena. Repeat EKG shows atrial flutter with 2-1 block in 140 heart rate, patient does have significant cutaneous air, unclear if transcutaneous cardioversion would be effective [facility], who suggested a trial of IV adenosine as there may be atrial flutter due to pericardial irritation from the mediastinal air, noting that the IV diltiazem was refractory and perhaps lower the blood pressure, he believes that with the Pleur-Evac chest thoracostomy set up at 20 cm, wall suction at 100 cm, likely will have decompression of the leak effectively. He would like to see the patient in the ER at [facility], we will arrange transfer. Case discussed with Dr. Jarrod Elena, accepts patient for transfer wireline supervisor Ulices called back after speaking Dr. Calvo, who would like us to try the adenosine before transfer. IV 6 mg adenosine, transient slowing with flutter waves, then resumption of a flutter with rate 140s. Call back from thoracic surgery Ulices Calvo, relayed to him that the adenosine was unsuccessful, he who would like us to try cardioversion at 200 joules biphasic. We discussed this with patient, who felt reluctant to have this procedure here for now, will hold cardioversion attempt here per patient preference. Call back from Radiology, who was able to review further this CT angiogram study, believes there has a small right-sided pulmonary embolus present as well. Chest tube is on the left side and dictation was corrected. Dr. Allen surgery return here, to evaluate the tube again, seems to be in good position and functioning well, does not recommend any to manipulation or 2nd tube at this time, advises urgent transfer which is being arranged Discussed with Dr. Calvo thoracic surgery, he looked at the scan does not believe there is a right-sided pulmonary embolus, no heparin was started anyway because of noncompressible left intrathoracic chest tube and recent surgical site. Dr. Calvo is aware of patient being transferred, accepted to their ED. [facility] arrived but unable to transport chest tube, no ED nursing escort available, Air ambulance transport requested Transported by air ambulance to [facility] ED for thoracic surgery consult on arrival, who is there expecting his patient. Critical Care Time Critical Care Time Critical Care Time: Yes Total Critical Care Time: 45 Attestation: The high probability of a clinically significant, sudden or life threatening deterioration of the [cardiopulmonary] system(s) required my full and direct attention, intervention and personal management. The aggregate critical care time was [45] minutes. This time is in addition to time spent performing reported procedures but includes the following: [x] Data Review and interpretation [x] Patient assessment and monitoring of vital signs [x] Documentation [x] Medication orders and management X Multiple consultations with in-house general surgery and with [facility] thoracic surgery Discharge Plan Departure Patient Disposition: [facility] Clinical Impression: Subcutaneous air, Atrial flutter with rapid ventricular response, History of lung surgery, Chest tube in place, Pulmonary embolism on right Prescriptions: No Action cholecalciferol (vitamin D3) 50 mcg (2,000 unit) capsule 50 mcg PO DAILY Qty: 90 3RF Rx Instructions: start after the 50,000 unit dose buprenorphine HCl 8 mg tablet, sublingual 24 mg sublingual DAILY PRN atorvastatin [Lipitor] 20 mg tablet 20 mg PO DAILY Qty: 90 3RF cyclobenzaprine 10 mg tablet 10 mg PO BID PRN (Reason: muscle spasm) Qty: 180 3RF lisinopril-hydrochlorothiazide 20-12.5 mg tablet 2 tab PO DAILY Qty: 180 3RF fluoxetine [Prozac] 20 mg capsule 20 mg PO DAILY Qty: 30 11RF hydroxyzine HCl 25 mg tablet 25 mg PO QID PRN (Reason: anxiety/panic) Qty: 60 5RF albuterol sulfate 90 mcg/actuation HFA aerosol inhaler 1 - 2 inh inhalation Q4-6H PRN (Reason: shortness of breath or wheezing) Qty: 8.5 11RF gabapentin 100 mg capsule 100 mg PO TID oxycodone 5 mg tablet 5 mg PO Q4H PRN (Reason: pain ) Rx Instructions: 1-2 tablets every 4 hrs as needed ibuprofen 400 mg tablet 400 mg PO Q8H Referrals: Omar Singh DO [Primary Care Provider] -
--- NOTE | 2024-09-04 09:45 | DI.CT.S_ITS ---
PROCEDURE: CT ANGIO CHEST PE PROTOCOL INDICATIONS: left chest pain, SQ air TECHNIQUE: After the administration of intravenous contrast, 2 mm thick sections acquired from the pulmonary apices to the posterior costophrenic angles. 3-dimensional maximum intensity projection (MIP) coronal and sagittal reformats were then acquired through the thorax. For radiation dose reduction, the following was used: automated exposure control, adjustment of mA and/or kV according to patient size. COMPARISON: None. FINDINGS: Image quality: Suboptimal opacification of the pulmonary arteries. Pulmonary arteries: Suboptimal opacification of the pulmonary arteries. No central pulmonary embolus identified. However segmental subsegmental pulmonary arteries cannot be evaluated.. Lower Neck: No enlarged lymph nodes. Thyroid: No thyroid nodules which require sonographic follow up, per consensus guidelines. Axillae: No enlarged lymph nodes. Chest Wall: There is extensive bilateral subcutaneous emphysema extending to the bilateral upper neck. Bones: Partially visualized anterior cervical hardware.. Lungs and Pleura: There is right pneumothorax with chest tube in place. Heart: Heart size is normal. No pericardial effusion. Thoracic Vessels: No aortic aneurysm. Mediastinum and Joanie: No enlarged lymph nodes. Extensive emphysema within the mediastinum. Esophagus: No wall thickening. Small hiatal hernia. Upper Abdomen: Visualized upper abdomen solid organs and bowel loops appear normal. IMPRESSION: Suboptimal evaluation of the pulmonary arteries. No central pulmonary embolus identified. Right pleural effusion with pigtail drain in place. Extensive subcutaneous emphysema involving the bilateral neck, anterior posterior chest yoo as well as extending into the mediastinum of uncertain etiology. No displaced rib fractures identified. Approved by: Rosalba Lutz M.D.,Ph.D. on 09/04/2024 at 11:59
--- NOTE | 2024-09-04 10:08 | EKG_ITS ---
[facility] [address] [place] [address] Test Date: 2024-09-04 Pat Name: Jt Sultana Department: [facility] Room: Gender: Male Marketing Database Consultant: elsa : 1955 Requested By: Order Number: [id number] Reading MD: Salty Maki Measurements Intervals [place] Rate: 152 P: 259 MO: QRS: 22 QRSD: 76 T: -56 QT: 246 QTc: 391 Interpretive Statements Critical Test Result: High HR Atrial flutter with 2:[address] and T wave abnormality Electronically Signed On 09-05-2024 11:15:34 PST by Salty Maki
[2024-09-04 10:29] LABS: Hematocrit 38.2 % (41-53); Hemoglobin 12.9 g/dL (13.5-17.5); Mean Corpuscular HGB Conc 33.7 % (30-36); Mean Corpuscular Hemoglobin 31.6 PG (26-34); Mean Corpuscular Volume 93.9 fL (80-100); Red Blood Cell Count 4.07 X10^6/uL (4.5-5.9); White Blood Cell Count 17.2 X10^3/uL (4.5-11.0)
[2024-09-04 10:30] LABS: Add Manual Diff / Slide Review NO; Basophils Absolute Auto 100 /uL (0-100); Basophils Percent Auto 0.5 % (0-2); Eosinophils Absolute Auto 200 /uL (0-450); Lymphocytes Absolute Auto 900 /uL (1100-4500); Monocytes Absolute Auto 900 /uL (0-900); Neutrophils Absolute Auto 15200 /uL (1500-7000); Neutrophils Percent Auto 88.5 % (50-75); Platelet Count 248 X10^3/uL (150-400); Red Cell Distribution Width 13.5 % (11.6-14.8)
[2024-09-04] MEDS: dilTIAZem 25 MG/5 ML SDV 10 MG IV ×2 (10:32→11:42)
[2024-09-04] MEDS: HYDROMORPHONE 0.5 MG INJ IV ×2 (10:38→11:10)
[2024-09-04] MEDS: dilTIAZem 125 MG in SODIUM CHLORIDE 0.9% 100 ML IV (10:38)
[2024-09-04 10:39] LABS: Influenza A - CEPHEID Flu A NEGATIVE (NEGATIVE); Influenza B - CEPHEID Flu B NEGATIVE (NEGATIVE); Respiratory Syncytial Virus Negative (Negative)
[2024-09-04] MEDS: SODIUM CHLORIDE 0.9% 1,000 ML 1000 ML IV (10:39)
[2024-09-04 10:45] LABS: Alanine Aminotransferase 25 IU/L (<50); Albumin 3.6 g/dL (3.5-5.0); Albumin Globulin Ratio 1.3 (1.0-2.8); Alkaline Phosphatase 72 U/L (38-126); Aspartate Aminotransferase 33 IU/L (17-59); BUN Creatinine Ratio 27.1 (6-22); Bilirubin Total 0.9 mg/dL (0.2-1.3); Blood Urea Nitrogen 23 mg/dL (9-20); Calcium 11.7 mg/dL (8.4-10.2); Carbon Dioxide 27 mmol/L (22-32); Chloride 101 mmol/L (98-107); Estimated Glomerular Filt Rate > 60 mL/min (>60); Globulin 2.8 g/dL (1.7-4.1); Glucose 145 mg/dL (80-110); Lactate (Lactic Acid) 2.4 mmol/L (0.7-2.1); Potassium 4.1 mmol/L (3.4-5.1); Sodium 134 mmol/L (137-145); Total Protein 6.4 g/dL (6.3-8.2)
[2024-09-04 10:48] LABS: HEMOLYSIS 70 (0-50)
[2024-09-04 10:53] LABS: COVID-19 CEPHEID 4-PLEX PCR Negative (Negative)
[2024-09-04 10:56] LABS: NT-proBNP (BNP-Adult 18+) 2290 pg/mL (<125); Troponin I < 0.012 ng/mL (0.01-0.034)
--- NOTE | 2024-09-04 10:57 | PC.NURSE ---
hx of lung tumor removal 08/29/2024. Sent home with chest tube. States that he has been having some SOB and cp this morning. Pt's HR is 150s.
[2024-09-04 11:16] LABS: INR 1.1 (0.9-1.3); Prothrombin Time 12.6 SECONDS (9.4-12.5)
--- NOTE | 2024-09-04 11:16 | PC.NURSE ---
Pt to CT. Dr Davis ok with pausing dilt.
[2024-09-04 11:58] LABS: Reflexed Lactate in 2 Hours Y
--- NOTE | 2024-09-04 12:07 | PC.NURSE ---
Addendum entered by Prema Fan R.N. 09/04/24 16:05: 1330 Ruth called ED back to inform that [facility] supervisor hide house agrees pt should be transferred to [facility] ED. Dr Davis ok'd resuming original plan for ED to ED transfer. Dr Davis no longer wanting to perform cardioverson on pt. [address] arrived to dept. Report given to Lilly RN & Roger [facility] RN. At the time of transport pt a&ox4. Airway patent. Chest tube patent. Addendum entered by Prema Fan R.N. 09/04/24 15:04: 1300 accepting physician at [facility] ED. Dr Davis spoke with cardiothoracic surgeon, Dr Calvo, and he agreed to see pt in ED. egg processing supervisor, Elizabeth, called ED to tell RN that pt could not transfer to ED because there were no ICU beds available and pt needed to be cardioverted in ED so he could be placed in a med-surge bed. RN spoke with Dr Davis and expressed concerns with cardioverson for pt because he is not appropriately anticoagulated and we do not know specific timeframe of when pt arrhythmia started. RN used chain of command called Brandi Franco, ED supply chain director, and informed of concerns for pt's plan of care and delay in transfer. Ruth to call supervisor hide house at [facility]. Addendum entered by Prema Fan R.N. 09/04/24 12:22: Dr Allen came to ED to change chest tube atrium and redress chest tube insertion site with vasaline gauze and tegaderm. Pt c/o pain and states that his voice is different. States that he feels like the swelling in his neck is getting worse and feels pressure in his neck & chest. Dr Davis and Dr Allen aware of pt status. No new orders at this time. Lung sounds auscultated bilaterally. Original Note: Pt not responding to dilt. HR remains in 150s. BP 96/69. Dilt drip stopped. Skin pale and clammy. Denies cp & sob. Dr Davis notified. No new orders at this time.
--- NOTE | 2024-09-04 12:28 | PC.NURSE ---
INcreased swelling noted on left chest. Dr Davis notified. No new orders at this time.
--- NOTE | 2024-09-04 12:40 | EKG_ITS ---
[address] [address] Test Date: 2024-09-04 Pat Name: Jt Sultana Department: Room: Gender: Male Coding Assistant: : 1955 Requested By: Order Number: [id number] Reading MD: Salty Maki Measurements Intervals [place] Rate: 147 P: IN: QRS: -5 QRSD: 60 T: -58 QT: 322 QTc: 503 Interpretive Statements Critical Test Result: High HR Atrial flutter with 2:1 AV conduction Nonspecific T wave abnormality Electronically Signed On 09-05-2024 11:17:03 PST by Salty Maki
[2024-09-04 12:42] LABS: Lactate 2HR (Lactic Acid Rflx) 1.5 mmol/L (0.7-2.1)
--- NOTE | 2024-09-04 12:44 | PM.CN ---
History of Present Illness Consult details Date Patient Seen: 09/04/24 Time Patient Seen: 12:44 Chief complaint: SOB Reason for consult: Pneumothorax Narrative: This is a 69-year-old white male who underwent lung surgery at [facility] earlier that last week. He was discharged to home with a chest tube on a small Pleur-evac. He developed crepitus extending to his neck and presented to the ER here. Chest x-ray shows the chest tube in good position. This confirmed with a CT scan. CT scan shows extensive pneumomediastinum and pneumothorax with subcutaneous emphysema. He is talking in full sentences. Meds Home Medications and Allergies Home Medications Medication Instructions Recorded Confirmed Type atorvastatin 20 mg tablet (Lipitor) 20 mg PO DAILY cholesterol #90 tabs 08/11/23 09/02/24 Rx buprenorphine HCl 8 mg sublingual 24 mg sublingual DAILY PRN 08/11/23 09/02/24 History tablet cyclobenzaprine 10 mg tablet 10 mg PO BID PRN muscle spasm #180 08/11/23 09/02/24 Rx tabs lisinopril 20 2 tab PO DAILY #180 tabs 08/11/23 09/02/24 Rx mg-hydrochlorothiazide 12.5 mg tablet cholecalciferol (vitamin D3) 50 50 mcg PO DAILY #90 caps 10/16/23 09/02/24 Rx mcg (2,000 unit) capsule albuterol sulfate 90 mcg/actuation 1 - 2 inh inhalation Q4-6H PRN 08/16/24 09/02/24 Rx aerosol inhaler shortness of breath or wheezing #8.5 grams fluoxetine 20 mg capsule (Prozac) 20 mg PO DAILY #30 caps 08/16/24 09/02/24 Rx hydroxyzine HCl 25 mg tablet 25 mg PO QID PRN anxiety/panic #60 08/16/24 09/02/24 Rx tabs gabapentin 100 mg capsule 100 mg PO TID 09/02/24 09/02/24 History ibuprofen 400 mg tablet 400 mg PO Q8H 09/02/24 09/02/24 History oxycodone 5 mg tablet 5 mg PO Q4H PRN pain 09/02/24 09/02/24 History Allergies Allergy/AdvReac Type Severity Reaction Status Date / Time From OXYCONTIN Allergy Severe Swelling Uncoded 08/16/24 09:20 in Lower Legs due to time release agent Exam Vital Signs (past 8 hours): - 09/04/24 09:39 09/04/24 09:58 09/04/24 10:00 Temperature 97.6 F Pulse Rate 158 H 152 H 152 H Respiratory Rate 18 18 24 Blood Pressure 120/80 Pulse Oximetry 97 94 94 Oxygen Delivery Method Room Air 09/04/24 10:17 09/04/24 10:17 09/04/24 10:20 Temperature Pulse Rate 149 H 149 H Respiratory Rate 17 13 Blood Pressure 135/83 Pulse Oximetry 93 92 Oxygen Delivery Method 09/04/24 10:20 09/04/24 10:30 09/04/24 10:30 Temperature Pulse Rate 152 H Respiratory Rate 15 Blood Pressure 113/59 L 131/59 L Pulse Oximetry 93 Oxygen Delivery Method 09/04/24 10:32 09/04/24 10:40 09/04/24 10:40 Temperature Pulse Rate 158 H 149 H Respiratory Rate 19 Blood Pressure 131/59 L 116/54 L Pulse Oximetry 93 Oxygen Delivery Method 09/04/24 10:50 09/04/24 10:50 09/04/24 11:00 Temperature Pulse Rate 149 H Respiratory Rate 11 L Blood Pressure 123/53 L 122/58 L Pulse Oximetry 92 Oxygen Delivery Method 09/04/24 11:00 09/04/24 11:10 09/04/24 11:10 Temperature Pulse Rate 148 H 149 H Respiratory Rate 18 21 Blood Pressure 96/68 Pulse Oximetry 93 94 Oxygen Delivery Method 09/04/24 11:28 09/04/24 11:28 09/04/24 11:30 Temperature Pulse Rate 145 H 147 H Respiratory Rate 11 L 10 L Blood Pressure 128/78 Pulse Oximetry 95 96 Oxygen Delivery Method 09/04/24 11:42 09/04/24 12:00 09/04/24 12:02 Temperature Pulse Rate 145 H 149 H 149 H Respiratory Rate 11 L Blood Pressure 128/78 Pulse Oximetry 94 95 Oxygen Delivery Method 09/04/24 12:02 09/04/24 12:04 09/04/24 12:04 Temperature Pulse Rate 149 H Respiratory Rate 15 Blood Pressure 86/61 L 92/69 Pulse Oximetry 95 Oxygen Delivery Method 09/04/24 12:11 09/04/24 12:18 09/04/24 12:19 Temperature Pulse Rate 149 H 147 H Respiratory Rate 15 17 Blood Pressure 120/77 Pulse Oximetry 97 96 Oxygen Delivery Method Oxygen Delivery Method Room Air Narrative Exam Narrative: Gen: NAD, sitting comfortably in bed, appears well. Speaking in full sentences but his voices distorted. HEENT: Sclera are anicteric, head is normocephalic and atraumatic, trachea is midline. Palpable crepitus throughout the neck and chest, left greater than right CV: RRR, no JVD Resp: clear to auscultation bilaterally, equal chest wall movement bilaterally, but the left chest has more subcutaneous emphysema in the right Chest tube has an air leak, dressing change, placed to a larger Pleur-evac and placed to suction Abd: soft, nontender, normoactive bowel sounds Ext: no edema, full range of motion Neuro: Cranial nerves II-XII grossly intact, no focal deficits Skin: No erythema or ecchymosis Objective Imaging CT scan - chest: My impression: Chest x-ray and CT scan of the chest and potent reviewed by me show extensive pneumomediastinum, pneumothorax and subcutaneous emphysema consistent with a potential bronchopleural fistula or tracheal tree disruption. Labs 09/04/24 10:00 09/04/24 10:00 Labs: Laboratory Results - last 24 hr 09/04/24 09/04/24 09/04/24 09:48 10:00 12:15 WBC 17.2 H RBC 4.07 L Hgb 12.9 L Hct 38.2 L MCV 93.9 MCH 31.6 MCHC 33.7 RDW 13.5 Plt Count 248 Neut % (Auto) 88.5 H Lymph % (Auto) 5.0 L Wood[place] % (Auto) 5.0 Eos % (Auto) 1.0 L Baso % (Auto) 0.5 Neut # (Auto) 01556 H Lymph # (Auto) 900 L [place] # (Auto) 900 Eos # (Auto) 200 Baso # (Auto) 100 PT 12.6 H INR 1.1 Sodium 134 L Potassium 4.1 Chloride 101 Carbon Dioxide 27 BUN 23 H Creatinine 0.85 Estimated GFR > 60 BUN/Creatinine Ratio 27.1 H Glucose 145 H Lactate 2.4 H 1.5 Calcium 11.7 H Total Bilirubin 0.9 AST 33 ALT 25 Alkaline Phosphatase 72 Troponin I < 0.012 NT-Pro-B Natriuret Pep 2290 H Total Protein 6.4 Albumin 3.6 Globulin 2.8 Albumin/Globulin Ratio 1.3 SARS-CoV-2 (PCR) Negative Influenza A (RT-PCR) Flu a negative Influenza B (RT-PCR) Flu b negative RSV (PCR) Negative PFSH Medical History Anxiety disorder with panic attacks Opiate dependence COPD (chronic obstructive pulmonary disease) Adenocarcinoma, lung Lung cancer Pulmonary nodule Hypercalcemia Encounter for subsequent annual wellness visit (AWV) in Medicare patient Chronic back pain Hyperlipidemia Fractures Mumps (~1963) Measles (~1961) Chicken pox History of elevated PSA (~2017) Low back pain Chronic neck pain Prostate cancer Benign essential HTN Surgical History History of surgery on arm (~1977) Anesthesia Cervical vertebral fusion (~2008) Family History Father Stroke Prostate cancer Mother Hypertension Hyperlipidemia Grandfather History of heart disease Grandfather History of kidney disease Tobacco & Substance Use Smoking Status: Former smoker Assessment & Plan Assessment and plan (1) Bronchopleural fistula: Status: Acute Assessment & Plan narrative: Based on the amount of pneumomediastinum, I am concerned for bronchopleural fistula. Chest tube placed to suction. Recommend transfer to a higher level of care for VATS revision of his staple line, possible muscle flap to cover the leak. We can not provide those services here, unfortunately. Time-Based Coding :: [TOTAL MINUTES] spent with patient and on the chart (including review of chart, obtaining history, exam, reviewing outside data, placing orders, documenting exam and treatment plan, and counseling patient) on [DATE]. PROFEE Charge Codes Inpatient or Observation consultation: 30808
[2024-09-04] MEDS: ADENOSINE 6 MG/2 ML VIAL IV (13:09)
--- NOTE | 2024-09-04 13:36 | PC.NURSE ---
Left-sided facial swelling observed. Pt states that he is still feeling discomfort in his left chest and neck. States that it is hard to swallow. Dr Davis aware.
--- NOTE | 2024-09-04 14:59 | PC.NURSE ---
Pt to transfer to [facility] via [facility]. Report given to [employer] Lilly KAMARA.
== END 2024-09-04 14:45 | disposition short-term general hospital (02) ==
PROVIDERS: Emergency Provider Emergency Medicine; PCP Family Medicine
DX: J86.0 Pyothorax with fistula (principal); I48.92 Unspecified atrial flutter; I26.99 Other pulmonary embolism without acute cor pulmonale; Z98.890 Other specified postprocedural states; Z87.891 Personal history of nicotine dependence
CPT/HCPCS: 0241U; 36415; 71045; 71275; 80053; 83605; 83880; 84484; 85025; 85610; 93005; 96361; 96365; 96366; 96375; 96376; 99284; 99291; 99292; J0153; J1171; Q9967

== ENCOUNTER → 2024-12-08 07:48 | Outpatient (CLI) | payer MEDICARE, SELFPAY ==
[2024-12-08 09:45] LABS: BUN Creatinine Ratio 19.6 (6-22); Blood Urea Nitrogen 19 mg/dL (9-20); Calcium 11.3 mg/dL (8.4-10.2); Carbon Dioxide 25 mmol/L (22-32); Chloride 103 mmol/L (98-107); Cholesterol 174 mg/dL (140-199); Estimated Glomerular Filt Rate > 60 mL/min (>60); Glucose 101 mg/dL (80-110); HDL Cholesterol 56 mg/dL (40-60); HEMOLYSIS < 15 (0-50); LDL Cholesterol Calculated 105 mg/dL (<100); Potassium 3.8 mmol/L (3.4-5.1); Sodium 138 mmol/L (137-145); Triglycerides 66 mg/dL (35-150)
[2024-12-08 10:14] LABS: Prostate Specific Antigen Scrn 0.767 ng/mL (0.1-4.0)
[2024-12-08 10:16] LABS: Hemoglobin A1C% w Est Avg Glu 4.8 % (4.0-6.0)
[2024-12-08 16:19] LABS: Hep C Virus Ab w/Reflex Quant NEGATIVE s/c (NEGATIVE)
== END ==
PROVIDERS: PCP Family Medicine; Referring Provider Family Medicine; Visit Provider Family Medicine
DX: R73.01 Impaired fasting glucose (principal); E78.5 Hyperlipidemia, unspecified; Z12.5 Encounter for screening for malignant neoplasm of prostate; J44.9 Chronic obstructive pulmonary disease, unspecified; I48.92 Unspecified atrial flutter; R91.1 Solitary pulmonary nodule; C34.90 Malignant neoplasm of unspecified part of unspecified bronchus or lung; C61 Malignant neoplasm of prostate; I10 Essential (primary) hypertension; Z11.59 Encounter for screening for other viral diseases
CPT/HCPCS: 36415; 80048; 80061; 83036; 86803; G0103

== ENCOUNTER → 2025-01-02 07:00 | Outpatient (CLI) | payer MEDICARE, SELFPAY ==
--- NOTE | 2025-01-02 07:02 | DI.MRI.S_ITS ---
PROCEDURE: MR CERVICAL SPINE WO CON INDICATIONS: CHRONIC LOW BACK PAIN,CERVICAL SPONDYLOSIS TECHNIQUE: Noncontrast sagittal T1 spin echo and T2 fast spin echo, sagittal STIR, foraminal oblique sagittal T2 fast spin echo, and axial gradient echo or T2 fast spin echo through the cervical spine. COMPARISON: [facility], NM, NM PET CT FUSION SKULL 2 THIGH, 06/08/2024, 15:01. [facility], CR, XR CHEST 1 VIEW, 09/04/2024, 16:00. FINDINGS: Alignment and Curvature: Grade 1 anterior spondylolisthesis C2-3 and C3-4. Reversal the normal cervical lordosis Bone Marrow: C5-6 and C6-7 interbody discectomy and fusion with anterior plate screw hardware in excellent position. Good graft incorporation. Spinal Cord: Visualized spinal cord has normal size and signal. No cerebellar tonsillar herniation. Paraspinous Soft Tissues: No paravertebral masses. Prevertebral soft tissues are normal in thickness. C2-C3: Normal appearance. C3-C4: Posterior disc osteophyte complex and hypertrophic facet joints results in moderate central stenosis with flattening the ventral surface of the cord. Hypertrophic arthropathy. Moderate bilateral foraminal stenosis. C4-C5: Posterior disc osteophyte complex. Mild to moderate central stenosis. Hypertrophic facet joints. Severe left and moderate right foraminal stenosis C5-C6: Discectomy and fusion anterior plate and screw instrumentation. Posterior osteophyte results in [id number] central stenosis with indentation of the central ventral cord. Central myelomalacia within the cord noted at the C5 level C6-C7: Discectomy and fusion. No central stenosis. Severe right and no left foraminal stenosis C7-T1: No central stenosis. Hypertrophic arthropathy. Moderate bilateral foraminal stenosis IMPRESSION: Auto text multilevel Multilevel degenerative disc disease and arthropathy results in varying degrees of central and foraminal stenosis including moderate central stenosis C3-4 and mild to moderate central stenosis C4-5. Instrumented discectomy and fusion with good graft incorporation at C5-6 and C6-7 Approved by: Francisco Miller M.D. on 01/02/2025 at 16:50
--- NOTE | 2025-01-02 07:58 | DI.MRI.S_ITS ---
PROCEDURE: MR LUMBAR SPINE WO CON INDICATIONS: CHRONIC LOW BACK PAIN, CERVICAL SPONDYLOSIS TECHNIQUE: Noncontrast sagittal T1 spin echo and T2 fast echo, sagittal STIR, and T2 fast spin echo through the lumbar spine. In cases with scoliosis, additional coronal T2 fast spin echo may be performed. COMPARISON: [facility], MR, L-SPINE WITHOUT CONTRAST, 03/05/2016, 16:37. FINDINGS: Image quality: Excellent. Some images are limited by motion artifacts, decreased [id number]. Alignment and Curvature: [id number] S shaped scoliosis of the lumbar spine is new compared to the prior exam some of which may be artifact from positioning. Bone Marrow: Mild diffuse heterogeneous signal with low T1 signal some of which related to hematopoietic marrow. No MR evidence of vertebral body fracture or significant subluxation. Spinal Cord: Conus medullaris terminates at the L1-2 level. Visualized cord demonstrates normal signal and size. Paraspinous Soft Tissues: No paravertebral masses. T12-L1: Mild facet osseous and ligamentous hypertrophic changes no central stenosis or significant neural foraminal narrowing. L1-L2: Moderate facet osseous and ligamentous hypertrophic changes with mild bilateral neural foraminal narrowing, no central stenosis. L2-L3: Moderate facet osseous and ligamentous hypertrophic changes , mild circumferential diffuse disc bulge, with moderate left and mild right neural foraminal narrowing and mild central stenosis progressed. L3-L4: Moderate facet osseous and ligamentous hypertrophic changes, with moderate circumferential diffuse disc bulge which flattens the anterior thecal sac with moderate to severe right and moderate left neural foraminal narrowing and moderate central stenosis progressed. L4-L5: Moderate facet osseous and ligamentous hypertrophic changes, with moderate circumferential diffuse disc bulge which flattens the anterior thecal sac with moderate to severe right and moderate left neural foraminal narrowing and mild central stenosis progressed. L5-S1: Moderate facet osseous and ligamentous hypertrophic changes, with moderate circumferential diffuse disc bulge which flattens the anterior thecal sac with moderate bilateral neural foraminal narrowing without central stenosis, progressed. IMPRESSION: Multilevel degenerative changes as discussed above progressed most notably at L3-4, L4-5 and L5-S1 Dictated by: Randall Montemayor M.D. on 01/02/2025 at 9:35 Approved by: Radnall Montemayor M.D. on 01/02/2025 at 10:08
== END ==
LOC: MRI 07:01
PROVIDERS: PCP Family Medicine; Referring Provider Anesthesiology Pain Medicine; Visit Provider Anesthesiology Pain Medicine
DX: M50.31 Other cervical disc degeneration, high cervical region (principal); M48.02 Spinal stenosis, cervical region; M47.812 Spondylosis without myelopathy or radiculopathy, cervical region; M47.816 Spondylosis without myelopathy or radiculopathy, lumbar region; M47.817 Spondylosis without myelopathy or radiculopathy, lumbosacral region; M54.50 Low back pain, unspecified; Z98.1 Arthrodesis status
CPT/HCPCS: 72141; 72148